=== PATIENT | male | born 1960 | race Caucasian/White ===

== ENCOUNTER 2024-03-17 16:22 | Outpatient (CLI) | payer OTHER, SELFPAY ==
--- NOTE | ~2024-03-17 | CT_ITS ---
EXAMINATION: CT brain wo con DATE: 03/17/2024 16:45 INDICATION: Headache. TECHNIQUE: Computed tomography (CT) of the head was performed without intravenous contrast. The mA wa s adjusted according to patient size. Iterative reconstruction technique was employed. The dose-lengt h product was 681.00 mGy-cm. COMPARISON: None FINDINGS: There is no intracranial hemorrhage, acute infarction, or abnormal intracranial mass lesion . 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 The ventricles are normal in size. The orbits are normal. There is mucosal thickening in the paranasal sinuses. There is thickening and sclerosis of the davis of left maxillary sinus, consistent with chronic sinusitis. The mastoid air cells are no rmal. IMPRESSION: 1. 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 2. Chronic sinusitis. Reviewed, dictated and finalized at location A.
== END 2024-03-17 16:23 | disposition home or self-care (01) ==
LOC: ANHIMG 16:23
PROVIDERS: PCP Family Medicine; Visit Provider Family Medicine
DX: G44.53 Primary thunderclap headache (principal); J32.0 Chronic maxillary sinusitis
CPT/HCPCS: 70450